=== PATIENT | male | born 1960 | race Caucasian/White ===

== ENCOUNTER → 2020-12-20 | Outpatient (CLI) | payer OTHER | LOC: SJCVCIMAG 07:49 | PROVIDERS: ATTEND Internal Medicine Cardiovascular Disease | DX: I34.0 Nonrheumatic mitral (valve) insufficiency (principal); I49.3 Ventricular premature depolarization; I48.91 Unspecified atrial fibrillation; I51.7 Cardiomegaly; R53.83 Other fatigue; E78.5 Hyperlipidemia, unspecified; Z79.82 Long term (current) use of aspirin; Z79.899 Other long term (current) drug therapy ==

== ENCOUNTER → 2021-02-14 | Outpatient (CLI) | payer OTHER ==
[~2021-02-14] VITALS: Ht 190.5 cm; Wt 96.4 kg
[~2021-02-14] MED LIST: FISH OIL 1,0001 EAC9 PO; MULTAQ 400 MG400 MG PO; NIASPAN 500 MG500 M1 PO; RED YEAST RICE600 MG PO; SILDENAFIL20 MG PO; TOPROL XL50 MG PO; XARELTO20 MG PO
[2021-02-14 10:38] VITALS: BP 98/68
[2021-02-14 10:45] LABS: ABSOLUTE NEUTROPHILS 2.2 thou/uL (1.4-8.2); BASOPHILS 1.9 % (0.0-2.0); EOSINOPHILS 5.8 % (0.0-3.0); HEMATOCRIT 43.9 % (42.0-52.0); HEMOGLOBIN 15.2 gm/dL (14.0-18.0); LYMPHOCYTES 31.4 % (24.0-44.0); MCH 32.8 pg (26.0-34.0); MCHC 34.7 g/dL (28.0-37.0); MCV 94.6 fL (80.0-100.0); MONOCYTES 10.4 % (1.0-8.0); PLATELET COUNT 218 thou/uL (150-400); POLYS 50.5 % (36.0-66.0); RBC 4.64 mil/uL (4.50-6.00); RDW 13.4 % (10.5-14.5); WBC 4.4 thou/uL (4.0-11.0)
[2021-02-14 10:52] LABS: CALCIUM 9.2 mg/dL (8.5-10.1); CREATININE 1.1 mg/dL (0.7-1.3); POTASSIUM 4.3 mmol/L (3.5-5.1)
[2021-02-14 10:57] LABS: ALBUMIN 4.2 g/dL (3.4-5.0); TOTAL BILIRUBIN 0.8 mg/dL (0.2-1.0); TOTAL PROTEIN 8.2 g/dL (6.4-8.2)
[2021-02-14 11:01] LABS: APTT 34.5 Seconds (24.5-32.8); INR 1.11
== END | disposition home or self-care (01) ==
LOC: CATH 08:11
PROVIDERS: ATTEND Internal Medicine Cardiovascular Disease
DX: I48.19 Other persistent atrial fibrillation (principal); I48.91 Unspecified atrial fibrillation; E78.00 Pure hypercholesterolemia, unspecified; Z98.890 Other specified postprocedural states; Z79.899 Other long term (current) drug therapy; Z79.01 Long term (current) use of anticoagulants; Z98.52 Vasectomy status; Z79.82 Long term (current) use of aspirin
CPT/HCPCS: 62110; 62900